=== PATIENT | female | born 1975 | race Two or more races ===

== ENCOUNTER 2017-10-22 17:06 | Emergency (ER) | payer MEDICAID ==
[~2017-10-22] VITALS: Ht 167.6 cm; Wt 136.1 kg
[2017-10-22 17:25] VITALS: BP 144/50
--- NOTE | 2017-10-22 17:42 | Emergency Room Report ---
History of Present Illness General Chief Complaint: Dyspnea/Respdistress Source: Patient, EMS Present Illness HPI 42-year-old female, current smoker, presenting with shortness of breath for one day. Patient states that she has been a chronic smoker, she was never diagnosed COPD but states that a few years ago she was treated with nebulizer treatment in the emergency room for a "cold" Patient states that she had sudden onset shortness of breath today, also has had runny nose, and dry cough. No fever no chills. No chest pain. No history of PE or DVT Allergies: Coded Allergies: GABAPENTIN (Verified Allergy, Unknown, 10/22/17) Patient History Past Medical History: see triage record Past Surgical History: none Pertinent Family History: none Reviewed Nursing Documentation: PMH: Agreed; PSxH: Agreed Nursing Documentation-PMH Past Medical History: No History, Except For Hx Hypertension: Yes Review of Systems All Other Systems: negative except mentioned in HPI Physical Exam Vital Signs Date Time Temp Pulse Resp B/P (MAP) Pulse Ox O2 Delivery O2 Flow Rate FiO2 10/22/17 17:03 70 20 141/76 99 Room Air Sp02 EP Interpretation: reviewed, normal General Appearance: alert, GCS 15, non-toxic, mild distress Head: normocephalic, atraumatic Eyes: bilateral eye normal inspection, bilateral eye PERRL, bilateral eye EOMI ENT: normal ENT inspection, normal pharynx, normal voice, moist mucus membranes Neck: normal inspection, full range of motion, supple Respiratory: speaking full sentences, other - MILD WHEEZING Cardiovascular #1: normal inspection, regular rate, rhythm, no edema, normal capillary refill Cardiovascular #2: 2+ radial (R), 2+ radial (L) Gastrointestinal: normal inspection, non tender, soft, non-distended, no guarding Musculoskeletal: normal inspection, back normal, normal range of motion, non- tender Neurologic: normal inspection, alert, oriented x3, responsive, motor strength/ tone normal, sensory intact, normal gait, speech normal Psychiatric: normal inspection, judgement/insight normal, memory normal Skin: normal inspection, normal color, no rash, warm/dry, well hydrated, normal turgor Medical Decision Making Diagnostic Impression: Primary Impression: Dyspnea Additional Impression: Wheezing ER Course 42-year-old female, chronic smoker, p/w SOB DDX: Asthma exacerbation, pneumonia, upper respiratory infection/viral syndrome PE is unlikely given other likely diagnoses which is more likely in this patients given clinical scenario and physical examination. Furthermore, there is no history of DVT/PE. PERC negative. No risk factors such as OCPs, prolonged immobilizations, recent surgeries, hypercoagulability. Plan: Patient only with very minimal wheezing. We'll give Combivent nebulizer treatment, labs EKG and chest x-ray ER Course: Patient's overall respiratory status has improved in ED. Patient states improvement of symptoms. Patient continues to speak in complete sentences and is not in respiratory distress. Disposition: Patient will be discharged to home Strict precautions are discussed with patient on when to emergently return to the ED including: persistent or worsening SOB, chest pain, fever, chills, which could indicate severe illness. Patient verbalized understanding. Patient is to follow up with her/his PMD within 5 days. Patient agrees with plan. Please note that this Emergency Department Report was dictated using [employer] customer service [employer] technology software, occasionally this can lead to erroneous entry secondary to interpretation by the dictation equipment. EKG Diagnostic Results EP Interpretation: Yes Rate: normal Rhythm: NSR ST Segments: No acute changes ASA given to patient: No Rhythm Strip EP Interpretation: Yes Rate: 70 Rhythm: NSR, no PVCs, no ectopy Chest X-ray CXR: Ordered: Yes 1 view Indication: SOB EP interpretation: Yes Interpretation: Patient with a right hemidiaphragm elevation, no acute infiltrate noted Impression: No acute disease Electronically signed by Lou Box MD Last Vital Signs Date Time Temp Pulse Resp B/P (MAP) Pulse Ox O2 Delivery O2 Flow Rate FiO2 10/22/17 17:25 68 28 144/50 96 Room Air Disposition: HOME, SELF-CARE Condition: Improved Scripts Albuterol Sulfate* (ALBUTEROL SULFATE MDI*) 8.5 Gm Hfa.aer.ad 2 PUFF INH Q4H PRN for cough/wheezing, #1 EA 0 Refills Prov: Lou Box M.D. 10/22/17 Lou Box M.D. October 22, 2017 17:42
[2017-10-22] MEDS ORDERED: Ipratropium 0.02% Inh Soln 2.5ml UD HHN ONE (17:45)
[2017-10-22] MEDS ORDERED: Albuterol ud Inhalation HHN ONE (17:45)
[2017-10-22 19:08] LABS: APPEARANCE,URINE CLEAR; BILIRUBIN, URINE NEGATIVE (NEGATIVE); COLOR,URINE PALE YELLOW; GLUCOSE, URINE (UA) NEGATIVE (NEGATIVE); KETONES,URINE NEGATIVE (NEGATIVE); LEUKOCYTE ESTERASE ,URINE 1+ (NEGATIVE); NITRITE,URINE NEGATIVE (NEGATIVE); PH,URINE 6.5 (4.5-8.0); PROTEIN,URINE NEGATIVE (NEGATIVE); UROBILINOGEN,URINE NORMAL MG/DL (0.0-1.0)
[2017-10-22 19:12] LABS: BASOPHILS % (AUTO) 0.9 % (0.0-2.0); HEMATOCRIT 35.1 % (37.0-47.0); HEMOGLOBIN 10.7 G/DL (12.0-16.0); LYMPHOCYTES % (AUTO) 30.4 % (20.0-45.0); MEAN CORPUSCULAR VOLUME 84 FL (80-99); MONOCYTES % (AUTO) 7.1 % (1.0-10.0); NEUTROPHILS % (AUTO) 55.6 % (45.0-75.0); PLATELET COUNT 173 K/UL (150-450); RED BLOOD COUNT 4.15 M/UL (4.20-5.40); RED CELL DISTRIBUTION WIDTH 21.8 % (11.6-14.8); WHITE BLOOD COUNT 7.5 K/UL (4.8-10.8)
[2017-10-22] MEDS ORDERED: ALBUTEROL SULF8.5 GM INH (19:14)
[2017-10-22 19:21] VITALS: BP 130/51
[2017-10-22 19:33] LABS: ANION GAP 8 mmol/L (5-15); BLOOD UREA NITROGEN 14 mg/dL (7-18); CALCIUM 8.6 MG/DL (8.5-10.1); CARBON DIOXIDE 27 MMOL/L (21-32); CHLORIDE 104 MMOL/L (98-107); CREATININE 0.4 MG/DL (0.55-1.30); POTASSIUM 3.9 MMOL/L (3.5-5.1); SODIUM 139 MMOL/L (136-145)
[2017-10-22 19:37] LABS: ALANINE AMINOTRANSFERASE 31 U/L (12-78); ALBUMIN 3.3 G/DL (3.4-5.0); ALBUMIN/GLOBULIN RATIO 0.8 (1.0-2.7); ALKALINE PHOSPHATASE 67 U/L (46-116); ASPARTATE AMINO TRANSFERASE 21 U/L (15-37); BILIRUBIN,TOTAL 0.2 MG/DL (0.2-1.0)
[2017-10-22] MEDS ORDERED: metroNIDAZOLE 500mg tab ORAL ONE (19:45)
[2017-10-22 19:50] VITALS: BP 126/60
--- NOTE | 2017-10-23 11:45 | Diagnostic Imaging Report ---
Indication: Dyspnea Technique: XRAY Chest 1v Comparison: None Findings: There is elevation of the right hemidiaphragm. Borderline cardiomegaly. Mediastinal contours appear sharp. There is question of subtle peribronchial thickening possibly related to reactive or small airway disease. There is no focal airspace consolidation, pleural effusion or pneumothorax. No acute osseous abnormality is seen. Impression: Findings suggestive of reactive or small airway disease. Further clinical. No definite focal airspace consolidation, pleural effusion or pneumothorax. Elevation of the right hemidiaphragm. Borderline cardiomegaly.
--- NOTE | 2017-10-23 16:25 | Cardiology Report ---
APPROVED REPORT EKG Measurement Heart [id number] [id number] Normal sinus rhythm Normal ECG
== END 2017-10-22 19:50 | disposition home or self-care (01) ==
LOC: EDBD 17:06 → EMR 18:20
DX: R06.00 Dyspnea, unspecified (principal); R06.2 Wheezing; I10 Essential (primary) hypertension
CPT/HCPCS: 36415; 71045; 80053; 81003; 81025; 83880; 84484; 85025; 93005; 94640; 94664; 99283